=== PATIENT | female | born 1995 | race Caucasian/White ===

== ENCOUNTER 2018-04-15 10:26 | Inpatient (IN) | payer MEDICAID ==
[~2018-04-15] VITALS: Ht 172.7 cm; Wt 71.7 kg
[2018-04-15 10:31] VITALS: Ht 172.7 cm; Wt 71.7 kg
[2018-04-15 12:11] LABS: PLATELET COUNT 197 x10^3mcL (130-400); RED CELL DISTRIBUTION WIDTH 13.6 % (11.5-14.5)
[2018-04-15 12:15] LABS: CALCIUM 8.7 mg/dL (8.5-10.1); CARBON DIOXIDE 26.7 mmol/L (21-32); CHLORIDE SERUM 101 mmol/L (98-107); CREATININE SERUM 0.8 mg/dL (0.6-1.0); GFR1 > 60 mL/min; GLUCOSE SERUM 106 mg/dL (74-106); POTASSIUM SERUM 3.2 mmol/L (3.5-5.1); SODIUM SERUM 136 mmol/L (136-145)
[2018-04-15 12:19] LABS: ALBUMIN 3.4 g/dL (3.4-5.0); ALKALINE PHOSPHATASE 69 U/L (46-116); ALT/SGPT 17 U/L (14-59); AST/SGOT 12 U/L (15-37); BILIRUBIN TOTAL 0.42 mg/dL (0.20-1.00); LIPASE 97 IU/L (73-393); TOTAL PROTEIN, SERUM 7.2 g/dL (6.4-8.2)
[2018-04-15 12:41] LABS: BAND NEUTROPHIL 6 % (0-10); BASOPHIL 0 % (0-2); MONOCYTE 5 % (0-7); SEGMENTED NEUTROPHILS 82 % (37-75)
[2018-04-15 12:43] LABS: PLATELET MORPHOLOGY PLATELETS DECREASED; rbc morphology (normal/abnorm) ABNORMAL (NORMAL)
[2018-04-15] MEDS ORDERED: ZOF4 PO (14:18)
[2018-04-15 14:29] LABS: MAGNESIUM 2.1 mg/dL (1.8-2.4)
[2018-04-15 14:34] LABS: UA SPECIFIC GRAVITY >=1.030 (1.005-1.035); microscopic required? YES; urine erythrocyte TRACE (NEGATIVE)
[2018-04-15 14:57] LABS: AMPHETAMINE QUAL UR NONE DETECTED (See below)
[2018-04-15 15:45] VITALS: BP 100/53
[2018-04-15 18:15] VITALS: BP 96/58
[2018-04-15 19:37] VITALS: BP 104/56
[2018-04-15 20:58] VITALS: BP 106/65
[2018-04-16 05:23] VITALS: BP 93/50
[2018-04-16 06:36] LABS: CALCIUM 7.6 mg/dL (8.5-10.1); CARBON DIOXIDE 24.4 mmol/L (21-32); CHLORIDE SERUM 105 mmol/L (98-107); CREATININE SERUM 0.6 mg/dL (0.6-1.0); GFR1 > 60 mL/min; GLUCOSE SERUM 104 mg/dL (74-106); POTASSIUM SERUM 3.5 mmol/L (3.5-5.1); SODIUM SERUM 138 mmol/L (136-145)
[2018-04-16 07:39] LABS: BASOPHIL % 0.1 % (0-2); PLATELET COUNT 162 x10^3mcL (130-400); RED CELL DISTRIBUTION WIDTH 13.3 % (11.5-14.5)
[2018-04-16 09:32] VITALS: BP 94/48
[2018-04-16 09:50] VITALS: BP 100/51; BP 110/51
[2018-04-16 17:02] VITALS: BP 94/49
[2018-04-16 20:10] VITALS: BP 96/49
[2018-04-17 05:40] VITALS: BP 93/56
[2018-04-17 06:33] LABS: CALCIUM 7.2 mg/dL (8.5-10.1); CARBON DIOXIDE 27.4 mmol/L (21-32); CHLORIDE SERUM 105 mmol/L (98-107); CREATININE SERUM 0.7 mg/dL (0.6-1.0); GFR1 > 60 mL/min; GLUCOSE SERUM 93 mg/dL (74-106); SODIUM SERUM 141 mmol/L (136-145)
[2018-04-17 06:40] LABS: POTASSIUM SERUM 2.6 mmol/L (3.5-5.1)
[2018-04-17 06:51] LABS: BASOPHIL % 0.2 % (0-2); PLATELET COUNT 163 x10^3mcL (130-400); RED CELL DISTRIBUTION WIDTH 13.5 % (11.5-14.5)
[2018-04-17 10:37] VITALS: BP 104/66
[2018-04-17 18:13] VITALS: BP 106/63
[2018-04-17 20:51] VITALS: BP 101/63
[2018-04-18 05:34] VITALS: BP 103/56
[2018-04-18 06:38] LABS: BASOPHIL % 0.5 % (0-2); PLATELET COUNT 168 x10^3mcL (130-400); RED CELL DISTRIBUTION WIDTH 13.8 % (11.5-14.5)
[2018-04-18 06:52] LABS: CALCIUM 7.6 mg/dL (8.5-10.1); CARBON DIOXIDE 27.1 mmol/L (21-32); CHLORIDE SERUM 104 mmol/L (98-107); CREATININE SERUM 0.5 mg/dL (0.6-1.0); GFR1 > 60 mL/min; GLUCOSE SERUM 82 mg/dL (74-106); SODIUM SERUM 139 mmol/L (136-145)
[2018-04-18 10:25] VITALS: BP 100/63
[2018-04-18] MEDS ORDERED: LEVAQUIN750 MG PO (12:56)
[2018-04-18 14:05] VITALS: BP 100/63
== END 2018-04-18 15:28 | disposition home or self-care (01) | DRG 710 ==
LOC: ED 10:26 → MU 13:58
PROVIDERS: Emergency Medicine; Surgery; ADMIT Family Medicine
PROC: 0DTJ4ZZ Resection of Appendix, Percutaneous Endoscopic Approach (ICD-10-PCS; principal; 2018-04-15 17:00)
DX: A41.9 Sepsis, unspecified organism (principal); N17.0 Acute kidney failure with tubular necrosis; K35.32 Acute appendicitis with perforation, localized peritonitis, and gangrene, without abscess; R80.9 Proteinuria, unspecified; E87.6 Hypokalemia; E83.39 Other disorders of phosphorus metabolism; Z68.24 Body mass index [BMI] 24.0-24.9, adult
CPT/HCPCS: J0330; J1170; J2250; J2270; J2405; J2543; J2704; J2710; J3010; J3480; J3490; J7030; J7120; Q0092

== ENCOUNTER 2019-01-25 18:35 | Emergency (ER) | payer MEDICAID ==
[~2019-01-25] VITALS: Ht 172.7 cm; Wt 79.4 kg
[~2019-01-25 18:35] MED LIST: LEVAQUIN750 MG PO; ZOF4 PO
[2019-01-25 18:39] VITALS: Ht 172.7 cm; Wt 79.4 kg
[2019-01-25 21:04] VITALS: BP 126/72
== END 2019-01-25 21:04 | disposition home or self-care (01) ==
LOC: ED 18:35
DX: N64.4 Mastodynia (principal); G89.29 Other chronic pain
CPT/HCPCS: 85378